=== PATIENT | male | born 1955 | race Caucasian/White ===

== ENCOUNTER 2016-07-18 01:12 | Emergency (ER) | payer MEDICARE, SELFPAY ==
[2016-07-18 01:39] LABS: BASO % 0.2 % (0.2-1.2); EOS # 0.3 10_X3_uL (0.0-0.5); EOS % 2.4 % (0.8-7.0); GRAN # 8.9 10_X3_uL (1.8-5.4); GRAN % 78.2 % (34.0-67.9); HEMATOCRIT 42.2 % (40-51); LYMPH # 1.3 10_X3_uL (1.3-3.6); LYMPH % 11.2 % (21.8-53.1); MEAN CORPUSCULAR HEMOGLOBIN 30.2 pg (27.0-33.0); MEAN CORPUSCULAR HGB CONC 33.2 g/dL (32.0-36.0); MEAN CORPUSCULAR VOLUME 90.9 fL (79-92); MEAN PLATELET VOLUME 10.5 fl (7.5-11.5); MONO # 0.9 10_X3_uL (0.3-0.8); PLATELET COUNT 265 x10_3/uL (163-337); RED BLOOD COUNT 4.64 x10_6/uL (4.6-6.1); RED CELL DISTRIBUTION WIDTH 14.4 % (11.6-14.4); WHITE BLOOD COUNT 11.4 x10_3/uL (4.2-9.1)
[2016-07-18 01:50] LABS: INR 1.3 (0.9-1.1); PARTIAL THROMBOPLASTIN TIME 27.8 SECONDS (21.3-29.3); PROTHROMBIN TIME (PATIENT) 13.3 SECONDS (9.9-11.1)
[2016-07-18 01:55] LABS: ALBUMIN 3.9 gm/dL (3.4-5.0); BILIRUBIN,TOTAL 0.83 mg/dL (0.0-1.0); CALCIUM 9.1 mg/dL (8.7-10.7); CREATININE 1.3 mg/dL (0.6-1.3); POTASSIUM 4.3 mmol/L (3.5-5.1); TOTAL PROTEIN 7.1 gm/dL (6.4-8.2)
[2016-07-18 02:20] LABS: ARTERIAL BLD GAS O2 SATURATION 92.6 % (94-98); ARTERIAL BLOOD GAS BASE EXCESS -2.5 mmol/L (-2.0-3.0); ARTERIAL BLOOD GAS HCO3 20.4 mmol/L (22-26); ARTERIAL BLOOD GAS PCO2 31.4 mmHg (35-48); ARTERIAL BLOOD GAS pH 7.43 (7.35-7.45)
== END 2016-07-18 04:00 | disposition short-term general hospital (02) ==
LOC: ER 01:12
PROVIDERS: Internal Medicine
DX: I50.9 Heart failure, unspecified (principal); R06.02 Shortness of breath; I97.89 Other postprocedural complications and disorders of the circulatory system, not elsewhere classified; E11.9 Type 2 diabetes mellitus without complications; Z95.810 Presence of automatic (implantable) cardiac defibrillator; Z79.899 Other long term (current) drug therapy; Z79.84 Long term (current) use of oral hypoglycemic drugs
CPT/HCPCS: 36415; 36600; 71010; 80053; 82550; 82553; 82803; 83880; 85025; 85610; 85730; 93005; 96374; 96375; 99284; 99285-25

== ENCOUNTER 2016-09-10 07:58 | Emergency (ER) | payer MEDICARE, OTHER, SELFPAY ==
[2016-09-10 08:35] LABS: BASO # 0.1 10_X3_uL (0.0-0.1); BASO % 0.8 % (0.2-1.2); EOS # 0.3 10_X3_uL (0.0-0.5); EOS % 5.6 % (0.8-7.0); GRAN # 3.8 10_X3_uL (1.8-5.4); HEMATOCRIT 40.2 % (40-51); HEMOGLOBIN 13.2 g/dL (13.7-17.5); LYMPH # 1.3 10_X3_uL (1.3-3.6); MEAN CORPUSCULAR HGB CONC 32.8 g/dL (32.0-36.0); MEAN CORPUSCULAR VOLUME 88.4 fL (79-92); MEAN PLATELET VOLUME 10.5 fl (7.5-11.5); MONO # 0.5 10_X3_uL (0.3-0.8); MONO % 8.6 % (5.3-12.2); PLATELET COUNT 290 x10_3/uL (163-337); RED BLOOD COUNT 4.55 x10_6/uL (4.6-6.1); RED CELL DISTRIBUTION WIDTH 14.7 % (11.6-14.4); WHITE BLOOD COUNT 6.1 x10_3/uL (4.2-9.1)
[2016-09-10 08:47] LABS: ALBUMIN 4.1 gm/dL (3.4-5.0); BILIRUBIN,TOTAL 0.48 mg/dL (0.0-1.0); CALCIUM 9.2 mg/dL (8.7-10.7); POTASSIUM 3.6 mmol/L (3.5-5.1); TOTAL PROTEIN 6.8 gm/dL (6.4-8.2)
[2016-09-10 08:55] LABS: CREATININE 2.7 mg/dL (0.6-1.3)
== END 2016-09-10 11:30 | disposition short-term general hospital (02) ==
LOC: ER 07:58
PROVIDERS: Emergency Medicine
DX: I20.9 Angina pectoris, unspecified (principal); N19 Unspecified kidney failure; E11.29 Type 2 diabetes mellitus with other diabetic kidney complication; I95.89 Other hypotension; Z79.899 Other long term (current) drug therapy; Z79.01 Long term (current) use of anticoagulants; Z79.891 Long term (current) use of opiate analgesic; Z79.82 Long term (current) use of aspirin; Z79.84 Long term (current) use of oral hypoglycemic drugs
CPT/HCPCS: 36415; 71010; 71250; 80053; 83880; 85025; 93005; 99070; 99284; 99285-25